=== PATIENT | male | born 1970 | race African-American/Black ===

== ENCOUNTER 2017-08-05 18:36 | Inpatient (IN) | payer BC, OTHER ==
[~2017-08-05] VITALS: Ht 172.7 cm; Wt 117.9 kg
[~2017-08-05 18:36] MED LIST: 1-ME1LIQ PO; ATEN-102 PO; LASI20TA PO; LOVA1TAB47 PO
[2017-08-05] MEDS ORDERED: HYDROmorphone HCL PF 1 MG/ML VIAL IV PUSH ONE (18:45)
[2017-08-05] MEDS ORDERED: SODIUM CHLORIDE 0.9% FLUSH 10 ML FLUSH IV FLUSH PRN ×2 (18:45→20:15)
[2017-08-05] MEDS ORDERED: TETANUS/DIPHTHERIA TOXOID ADULT 0.5 ML VIAL IM ONE (18:45)
[2017-08-05] MEDS ORDERED: ONDANSETRON HCL 4 MG/2 ML VIAL IVP ONE (18:45)
[2017-08-05 18:47] VITALS: BP 120/70; PULSE 67; RESP 18; TEMP 98.4; O2SAT 99
[2017-08-05 18:54] VITALS: O2SAT 99
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
[2017-08-05] MEDS ORDERED: HYDROmorphone HCL PF 2 MG/ML VIAL IV PUSH ONE (19:00)
[2017-08-05] MEDS ORDERED: LOVA10TA PO (19:02)
[2017-08-05] MEDS ORDERED: BETA BLOCKER (19:02)
[2017-08-05] MEDS ORDERED: HYDR12.57 PO (19:02)
[2017-08-05] MEDS ORDERED: AMLO2.5T PO (19:02)
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
[2017-08-05] MEDS ORDERED: ACETAMINOPHEN/HYDROcodone 325 MG/5 MG TAB PO PRN (20:15)
[2017-08-05] MEDS ORDERED: MAGNESIUM HYDROXIDE SUSP 30 ML CUP PO PRN (20:15)
[2017-08-05] MEDS ORDERED: SENNOSIDES 8.6 MG TAB PO PRN (20:15)
[2017-08-05] MEDS ORDERED: ACETAMINOPHEN 325 MG TAB PO PRN (20:15)
[2017-08-05] MEDS ORDERED: LACTULOSE SYRUP 20 GM/30 ML CUP PO PRN (20:15)
[2017-08-05] MEDS ORDERED: BISACODYL 10 MG SUPP RECTAL PRN (20:15)
[2017-08-05] MEDS ORDERED: ONDANSETRON HCL 4 MG/2 ML VIAL IVP PRN (20:15)
[2017-08-05] MEDS ORDERED: PILL SPLITTER OTHER PRN (20:15)
[2017-08-05] MEDS: DOCUSATE SODIUM 50 MG/SENNA 8.6 MG TAB PO SCH (21:00)
[2017-08-05] MEDS: SODIUM CHLORIDE 0.9% FLUSH 10 ML FLUSH IV FLUSH SCH (21:00)
[2017-08-05] MEDS: SODIUM CHLOR 0.9% 1000 ML INJ 1,000 ML IV SCH (21:00)
[2017-08-05 21:09] LABS: AUTOMATED NEUTROPHIL # 2.7 TH/MM3 (1.8-7.7); BASOPHIL % 0.8 % (0.0-2.0); EOSINOPHIL # 0.1 TH/MM3 (0-0.4); EOSINOPHIL % 1.7 % (0.0-4.0); HEMATOCRIT 39.2 % (39.0-51.0); HEMOGLOBIN 13.2 GM/DL (13.0-17.0); LYMPH % 46.3 % (9.0-44.0); MEAN CELL VOLUME 84.1 FL (80.0-100.0); MEAN CORPUSCULAR HEMOGLOBIN 28.3 PG (27.0-34.0); MEAN CORPUSCULAR HGB CONC 33.7 % (32.0-36.0); MEAN PLATELET VOLUME 8.1 FL (7.0-11.0); MONO % 9.2 % (0.0-8.0); MONOCYTE # 0.6 TH/MM3 (0-0.9); PLATELET COUNT 286 TH/MM3 (150-450); RED BLOOD COUNT 4.66 MIL/MM3 (4.50-5.90); RED CELL DISTRIBUTION WIDTH 14.3 % (11.6-17.2); WHITE BLOOD COUNT 6.5 TH/MM3 (4.0-11.0)
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
[2017-08-05 21:18] LABS: PROTHROMBIN TIME - PATIENT 10.2 SEC (9.8-11.6)
[2017-08-05 21:22] LABS: BICARBONATE 26.6 MEQ/L (21.0-32.0); CALCIUM 8.3 MG/DL (8.5-10.1); CREATININE 1.21 MG/DL (0.60-1.30)
[2017-08-05] MEDS: MORPHINE SULFATE 2 MG/ML SYRINGE IV PUSH PRN (22:27)
[2017-08-05 23:15] VITALS: BP 132/81; PULSE 85; RESP 18; TEMP 98.8; O2SAT 96
[2017-08-06] MEDS ORDERED: LACTATED RINGER'S 1000 ML IV PRN (00:15)
[2017-08-06] MEDS ORDERED: POVIDONE IODINE 5% (ANTISEPSIS KIT) 4 APPLICATIONS EACH NARE PRN (00:15)
[2017-08-06] MEDS ORDERED: METOPROLOL TARTRATE 25 MG TAB PO PRN (00:15)
[2017-08-06] MEDS ORDERED: CHLORHEXIDINE GLUCONATE 2 % 1 PACK (2 CLOTHS) TOPICAL PRN (00:15)
[2017-08-06] MEDS ORDERED: BETA BLOCKER (00:20)
[2017-08-06] MEDS ORDERED: HYDR25TA5 PO (00:22)
[2017-08-06] MEDS ORDERED: AMLO10TA2 PO (00:23)
[2017-08-06] MEDS ORDERED: FLUT1SPR5 EACH NARE (00:25)
[2017-08-06] MEDS ORDERED: LOVA20TA PO (00:25)
[2017-08-06] MEDS ORDERED: MULTTAB67 PO (00:25)
[2017-08-06] MEDS ORDERED: MONT10TA2 PO (00:25)
[2017-08-06 03:15] VITALS: BP 136/73; PULSE 83; RESP 17; TEMP 97.7; O2SAT 96
[2017-08-06] MEDS: MORPHINE SULFATE 2 MG/ML SYRINGE IV PUSH PRN ×2 (03:39→12:01)
[2017-08-06] MEDS: SODIUM CHLOR 0.9% 1000 ML INJ 1,000 ML IV SCH ×2 (05:12→17:00)
[2017-08-06 06:22] LABS: ALBUMIN 3.4 GM/DL (3.4-5.0); AST (GOT) 23 U/L (15-37); BICARBONATE 26.5 MEQ/L (21.0-32.0); BLOOD UREA NITROGEN 19 MG/DL (7-18); CALCIUM 8.3 MG/DL (8.5-10.1); CHLORIDE 102 MEQ/L (98-107); CREATININE 1.17 MG/DL (0.60-1.30); GLOMERULAR FILTRATION RATE 81 ML/MIN (>89); GLUCOSE,RANDOM 109 MG/DL (74-106); SODIUM (NA) 137 MEQ/L (136-145)
[2017-08-06 06:23] LABS: ALT (GPT) 44 U/L (12-78)
[2017-08-06 06:25] LABS: ALKALINE PHOSPHATASE 47 U/L (45-117); TOTAL BILIRUBIN ADULT 0.5 MG/DL (0.2-1.0); TOTAL PROTEIN 6.5 GM/DL (6.4-8.2)
[2017-08-06] MEDS ORDERED: ceFAZolin 2 GM PREMIX 50 ML ONE (07:05)
[2017-08-06] MEDS ORDERED: VANCOMYCIN HCL 1000 MG VIAL ONE (07:05)
[2017-08-06] MEDS ORDERED: GENTAMICIN SULFATE 80 MG/2 ML VIAL ONE (07:06)
[2017-08-06 07:17] LABS: AUTOMATED NEUTROPHIL # 6.3 TH/MM3 (1.8-7.7); BASOPHIL % 0.1 % (0.0-2.0); EOSINOPHIL % 0.2 % (0.0-4.0); HEMATOCRIT 36.5 % (39.0-51.0); HEMOGLOBIN 12.4 GM/DL (13.0-17.0); LYMPH % 16.4 % (9.0-44.0); LYMPHOCYTE # 1.4 TH/MM3 (1.0-4.8); MEAN CELL VOLUME 83.4 FL (80.0-100.0); MEAN CORPUSCULAR HEMOGLOBIN 28.3 PG (27.0-34.0); MEAN PLATELET VOLUME 7.9 FL (7.0-11.0); MONO % 8.5 % (0.0-8.0); MONOCYTE # 0.7 TH/MM3 (0-0.9); NEUT % 74.8 % (16.0-70.0); PLATELET COUNT 245 TH/MM3 (150-450); RED BLOOD COUNT 4.38 MIL/MM3 (4.50-5.90); RED CELL DISTRIBUTION WIDTH 13.9 % (11.6-17.2); WHITE BLOOD COUNT 8.4 TH/MM3 (4.0-11.0)
[2017-08-06] MEDS ORDERED: BACITRACIN TOP OINT 15 GM TUBE ONE (07:32)
[2017-08-06] MEDS ORDERED: Post-op Orders (for Pharmacy) XX ONE (08:00)
--- NOTE | 2017-08-06 08:04 | PD.OP ---
cc: Negro Greenberg MD Operative Report Date of Surgery: Aug 06, 2017 Preoperative Diagnosis: Comminuted displaced right bicondylar tibial plateau fracture Postoperative Diagnosis: Procedure: Closed reduction with manipulation right tibial plateau, external fixation right leg Anesthesia: Gen. Surgeon: Negro Greenberg Stationary Engineer(s): ANALI Campbell PA-C The surgical procedure was assisted by my physician assistant branch operations manager. My P.A. presence was necessary throughout this case for the manipulation and positioning of the surgical extremity. My P.A. was assisting me throughout the duration of this procedure. The skill set of a physician assistant branch operations manager was medically necessary to complete this procedure. During the surgical case the logistics tech was working at the back table and the physician assistant branch operations manager was directly assisting me. Operation and Findings: This patient sustained an injury resulting in comminuted fractures of right tibial plateau. Patient was seen and evaluated preoperatively and found to have too much swelling to proceed with open reduction internal fixation. Risk and benefits of surgery were discussed in depth with patient and informed consent was confirmed. Surgical site was marked. Patient was brought to operating room and placed on the OR table. Patient was given IV sedation and GETA. Patient received IV antibiotics and timeout procedure was performed. Operative leg was prepped with alcohol followed by Hibiclens and draped in the usual sterile fashion. Two small incisions were made along the anterior femur and the tibia. Soft tissue was dissected bluntly. Cannulas were placed down to the cortex of bone. Pin sites were predrilled. Synthes LOPEZ-coated pins were placed into the femur and tibia. Fluoroscopy was used to confirm appropriate pin placement. An external fixator construct was now created with clamps and bars. Next attention was turned to reduction. Traction was applied. Fracture was manipulated. Good alignment of the fracture was obtained. There is severe comminution of the articular surface. Fluoroscopy was used to confirm appropriate alignment of fracture. The external fixator was now tightened to hold reduction. Sterile dressings were applied. Patient was awakened and transferred to recovery room in stable condition. The soft tissue was reevaluated. Patient did have swelling around the knee and calf but compartments were soft and compressible with no signs of compartment syndrome. Negro Greenberg MD Aug 06, 2017 08:04
[2017-08-06] MEDS ORDERED: *MEPERIDINE 25 MG INJ VIAL PERIprocedural Use ONLY ONE (08:18)
[2017-08-06] MEDS ORDERED: DO NOT ADM ANY ANTICOAGULANT DRUGS PRN (08:19)
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
[2017-08-06] MEDS ORDERED: *morphine SULFATE 4 MG/ML PERIprocedure ONLY ONE (08:50)
[2017-08-06] MEDS ORDERED: diphenhydrAMINE HCL 25 MG CAP PO PRN (09:00)
[2017-08-06] MEDS: KETOROLAC TROMETHAMINE 30 MG/ML (IVP) VIAL IVP SCH ×3 (09:00→20:46)
[2017-08-06] MEDS: SODIUM CHLORIDE 0.9% FLUSH 10 ML FLUSH IV FLUSH SCH ×2 (09:00→20:46)
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
[2017-08-06 11:57] VITALS: BP 154/91; PULSE 86; RESP 18; TEMP 99.6; O2SAT 100
[2017-08-06] MEDS ORDERED: LIDOCAINE HCL 1% PF 5 ML SYRINGE OTHER ONE (12:00)
[2017-08-06] MEDS ORDERED: PROPOFOL 200 MG/20 ML AMP IV ONE (12:00)
[2017-08-06] MEDS: PRAVASTATIN SOD 10 MG TAB PO SCH (12:02)
[2017-08-06] MEDS: DOCUSATE SODIUM 50 MG/SENNA 8.6 MG TAB PO SCH ×2 (12:02→20:46)
[2017-08-06] MEDS: amLODIPine BESYLATE 5 MG TAB PO SCH (12:06)
[2017-08-06] MEDS: ACETAMINOPHEN/HYDROcodone 325 MG/10 MG TAB PO PRN ×3 (15:29→23:52)
[2017-08-06 16:00] VITALS: BP 144/85; PULSE 91; RESP 18; TEMP 99.1; O2SAT 100
[2017-08-06 17:04] VITALS: O2SAT 100
[2017-08-06] MEDS: MORPHINE SULFATE 4 MG/ML INJ IV PUSH PRN (18:06)
--- NOTE | 2017-08-06 19:00 | RADRPT ---
EXAM DATE/TIME: 08/06/2017 07:56 [place] COMPARISON: No previous studies available for comparison. INDICATIONS : Closed reduction external fixation right tibia. MEDICAL HISTORY : None. SURGICAL HISTORY : None. ENCOUNTER: Initial ACUITY: 1 day PAIN SCORE: Non-responsive. LOCATION: Right Tibia FINDINGS: Two view examination of the right tibia demonstrates comminuted fracture of the proximal tibia with d isplacement. Fibular head fracture. CONCLUSION: 1. Comminuted proximal tibial fracture extending into the tibial plateau. Lateral displacement of the lateral fragment. Proximal fibular fracture as well. Irvin Jalloh MD on August 06, 2017 at 18:56 Board Certified Radiologist. This report was verified electronically.
[2017-08-06 20:00] VITALS: BP 148/84; PULSE 89; RESP 17; TEMP 98.9; O2SAT 98
[2017-08-06] MEDS: LACTATED RINGER'S 1000 ML INJ 1,000 ML IV SCH (20:30)
[2017-08-06 23:24] VITALS: BP 152/80; PULSE 88; RESP 15; TEMP 99.4; O2SAT 98
[2017-08-07] MEDS: ACETAMINOPHEN/HYDROcodone 325 MG/10 MG TAB PO PRN ×6 (02:59→22:35)
[2017-08-07] MEDS: KETOROLAC TROMETHAMINE 30 MG/ML (IVP) VIAL IVP SCH ×4 (03:00→20:25)
[2017-08-07 03:03] VITALS: BP 149/82; PULSE 80; RESP 15; TEMP 99.1; O2SAT 99
[2017-08-07 04:18] LABS: AUTOMATED NEUTROPHIL # 4.2 TH/MM3 (1.8-7.7); BASOPHIL % 0.4 % (0.0-2.0); EOSINOPHIL # 0.1 TH/MM3 (0-0.4); EOSINOPHIL % 1.4 % (0.0-4.0); HEMATOCRIT 32.6 % (39.0-51.0); LYMPH % 27.1 % (9.0-44.0); MEAN CELL VOLUME 82.3 FL (80.0-100.0); MEAN CORPUSCULAR HEMOGLOBIN 27.7 PG (27.0-34.0); MEAN CORPUSCULAR HGB CONC 33.7 % (32.0-36.0); MEAN PLATELET VOLUME 7.7 FL (7.0-11.0); MONO % 12.2 % (0.0-8.0); MONOCYTE # 0.9 TH/MM3 (0-0.9); NEUT % 58.9 % (16.0-70.0); PLATELET COUNT 197 TH/MM3 (150-450); RED BLOOD COUNT 3.97 MIL/MM3 (4.50-5.90); RED CELL DISTRIBUTION WIDTH 14.1 % (11.6-17.2); WHITE BLOOD COUNT 7.2 TH/MM3 (4.0-11.0)
[2017-08-07 04:40] LABS: ALT (GPT) 36 U/L (12-78); AST (GOT) 23 U/L (15-37); BICARBONATE 29.7 MEQ/L (21.0-32.0); BLOOD UREA NITROGEN 12 MG/DL (7-18); CALCIUM 8.1 MG/DL (8.5-10.1); CHLORIDE 104 MEQ/L (98-107); CREATININE 0.91 MG/DL (0.60-1.30); GLOMERULAR FILTRATION RATE 108 ML/MIN (>89); GLUCOSE,RANDOM 102 MG/DL (74-106); PHOSPHORUS 3.2 MG/DL (2.5-4.9); SODIUM (NA) 140 MEQ/L (136-145)
[2017-08-07 04:49] LABS: ALKALINE PHOSPHATASE 41 U/L (45-117); FREE T4 1.42 NG/DL (0.76-1.46); TOTAL BILIRUBIN ADULT 1.1 MG/DL (0.2-1.0); TOTAL PROTEIN 6.3 GM/DL (6.4-8.2)
--- NOTE | 2017-08-07 06:41 | PD.ORT.PN ---
Subjective Subjective Remarks Resting comfortably. Does complain of left wrist pain Objective Vitals Vital Signs Date Time Temp Pulse Resp B/P (MAP) Pulse Ox O2 Delivery O2 Flow Rate FiO2 08/07/17 03:03 99.1 80 15 149/82 (104) 99 08/06/17 23:24 99.4 88 15 152/80 (104) 98 08/06/17 20:00 98.9 89 17 148/84 (105) 98 08/06/17 17:04 100 Nasal Cannula 2.00 08/06/17 16:00 99.1 91 18 144/85 (104) 100 08/06/17 11:57 99.6 86 18 154/91 (112) 100 08/06/17 09:15 98.9 77 17 142/86 (104) 100 Nasal Cannula 3 08/06/17 09:00 75 17 134/81 (98) 100 Nasal Cannula 3 08/06/17 08:45 76 16 122/66 (84) 100 Nasal Cannula 3 08/06/17 08:30 88 15 120/69 (86) 100 Nasal Cannula 3 08/06/17 08:15 99.5 89 15 145/90 (108) 100 Nasal Cannula 3 I/O 08/06/17 08/06/17 08/06/17 08/07/17 08/07/17 08/07/17 07:00 15:00 23:00 07:00 15:00 23:00 Intake Total 240 ml 1000 ml 750 ml Output Total 500 ml 570 ml 1100 ml Balance -260 ml 430 ml -350 ml Intake Oral 240 ml 750 ml Other 1000 ml Output Urine Total 500 ml 550 ml 1100 ml Other 20 ml # Voids 2 # Bowel Movements 0 Result Diagram: 08/07/17 0337 08/07/17 033 Objective Remarks Bilateral upper extremities: Full range of motion neurovascular intact. Does complain of left wrist pain Left lower extremity: Full range of motion neurovascular intact Right lower extremity: No pain with hip range of motion. External fixation in place. Swelling of +3 over tibia plateau. Intact sensation with good capillary refills and distal pulses. Assessment & Plan Assessment and Plan Right bicondylar tibial plateau fracture external fixation POD 1 Nonweightbearing right lower extremity Pin care twice a day Elevation and ice We'll plan on surgery later this week when swelling is improved for final fixation of tibia plateau with a plate and screws Zeferino Complaining of left wrist pain, we'll order x-rays today Yared Herrera Jr. Aug 07, 2017 06:41
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
[2017-08-07] MEDS ORDERED: WHEEMIS3 (07:54)
[2017-08-07] MEDS ORDERED: WALKER WHEELS/F1 MIS (07:54)
[2017-08-07 07:55] VITALS: BP 135/86; PULSE 90; RESP 18; TEMP 98.7; O2SAT 99
[2017-08-07] MEDS: SODIUM CHLORIDE 0.9% FLUSH 10 ML FLUSH IV FLUSH SCH ×2 (08:45→20:25)
[2017-08-07] MEDS: amLODIPine BESYLATE 5 MG TAB PO SCH (08:45)
[2017-08-07] MEDS: DOCUSATE SODIUM 50 MG/SENNA 8.6 MG TAB PO SCH ×2 (08:45→20:25)
[2017-08-07] MEDS: PRAVASTATIN SOD 10 MG TAB PO SCH (08:45)
[2017-08-07] MEDS: ENOXAPARIN SODIUM 40 MG/0.4 ML SYRINGE SQ SCH (08:45)
[2017-08-07] MEDS: LACTATED RINGER'S 1000 ML INJ 1,000 ML IV SCH ×2 (09:00→21:30)
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
[2017-08-07 11:54] VITALS: BP 145/50; PULSE 94; RESP 18; TEMP 99.4; O2SAT 97
[2017-08-07] MEDS: SODIUM CHLOR 0.9% 1000 ML INJ 1,000 ML IV SCH ×2 (13:00→23:00)
[2017-08-07 13:30] VITALS: O2SAT 97
[2017-08-07 16:00] VITALS: BP 143/85; PULSE 96; RESP 18; TEMP 99.3; O2SAT 99
[2017-08-07 20:09] VITALS: BP 146/85; PULSE 99; RESP 18; TEMP 99.6; O2SAT 100
[2017-08-07] MEDS: MORPHINE SULFATE 4 MG/ML INJ IV PUSH PRN (20:25)
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
[2017-08-08 00:15] VITALS: BP 131/64; PULSE 92; RESP 18; TEMP 97.7; O2SAT 98
[2017-08-08] MEDS: ACETAMINOPHEN/HYDROcodone 325 MG/10 MG TAB PO PRN ×7 (01:56→22:14)
[2017-08-08] MEDS: KETOROLAC TROMETHAMINE 30 MG/ML (IVP) VIAL IVP SCH (03:17)
--- NOTE | 2017-08-08 07:16 | PD.ORT.PN ---
Subjective Subjective Remarks s/p exfix right tibial plateau fx s/p left scaphoid fx doing well. pain controlled. no complaints. Objective Vitals Vital Signs Date Time Temp Pulse Resp B/P (MAP) Pulse Ox O2 Delivery O2 Flow Rate FiO2 08/08/17 00:15 97.7 92 18 131/64 (86) 98 08/07/17 20:09 99.6 99 18 146/85 (105) 100 08/07/17 16:12 08/07/17 16:00 99.3 96 18 143/85 (104) 99 08/07/17 13:30 97 21 08/07/17 13:29 08/07/17 11:54 99.4 94 18 145/50 (81) 97 08/07/17 11:27 08/07/17 07:55 98.7 90 18 135/86 (102) 99 I/O 08/07/17 08/07/17 08/07/17 08/08/17 08/08/17 08/08/17 07:00 15:00 23:00 07:00 15:00 23:00 Intake Total 750 ml 480 ml 0 ml 360 ml Output Total 1100 ml 400 ml Balance -350 ml 480 ml 0 ml -40 ml Intake Oral 750 ml 480 ml 360 ml IV Total 0 ml Output Urine Total 1100 ml 400 ml # Voids 4 # Bowel Movements 0 0 Result Diagram: 08/07/1733608/07/17336 Objective Remarks RLE: Ex-fix in place. Pin sites clean and dry. 2+ swelling of the lower leg with compartments that are soft. Full sensation distally with good dorsiflexion of ankle LUE: Short arm splint is present in good repair. Full motion of fingers with full sensation in median and ulnar nerve distribution Assessment & Plan Assessment and Plan 1) Right bicondylar tibial plateau fracture external fixation POD 2 2) Scaphoid fx left wrist Nonweightbearing right lower extremity Pin care twice a day Elevation and ice We'll plan on surgery later this week when swelling is improved for final fixation of tibia plateau with a plate and screws Lovenox Ct scan of wrist shows scaphoid fx. will treat nonop convert to short arm thumb spica splint. Gene Elizabeth/Gravel Hauler PA Aug 08, 2017 07:16
[2017-08-08 07:49] VITALS: BP 143/85; PULSE 98; RESP 18; TEMP 98.6; O2SAT 99
[2017-08-08] MEDS: SODIUM CHLORIDE 0.9% FLUSH 10 ML FLUSH IV FLUSH SCH ×2 (09:00→21:40)
[2017-08-08] MEDS: SODIUM CHLOR 0.9% 1000 ML INJ 1,000 ML IV SCH ×3 (09:00→21:55)
[2017-08-08] MEDS: amLODIPine BESYLATE 5 MG TAB PO SCH (09:10)
[2017-08-08] MEDS: DOCUSATE SODIUM 50 MG/SENNA 8.6 MG TAB PO SCH ×2 (09:10→21:42)
[2017-08-08] MEDS: PRAVASTATIN SOD 10 MG TAB PO SCH (09:10)
[2017-08-08] MEDS: KETOROLAC TROMETHAMINE 30 MG/ML (IVP) VIAL IV PUSH SCH ×3 (09:11→21:41)
[2017-08-08] MEDS: ENOXAPARIN SODIUM 40 MG/0.4 ML SYRINGE SQ SCH (09:12)
[2017-08-08] MEDS: LACTATED RINGER'S 1000 ML INJ 1,000 ML IV SCH ×2 (10:00→21:55)
[2017-08-08 11:48] VITALS: BP 142/79; PULSE 113; RESP 18; TEMP 98.8; O2SAT 98
[2017-08-08] MEDS: MORPHINE SULFATE 4 MG/ML INJ IV PUSH PRN (14:23)
[2017-08-08 15:57] VITALS: BP 133/74; PULSE 105; RESP 18; TEMP 99.9; O2SAT 98
[2017-08-08 20:00] VITALS: BP 148/80; PULSE 108; RESP 17; TEMP 100.2; O2SAT 99
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
[2017-08-08] MEDS ORDERED: LACTULOSE SYRUP 20 GM/30 ML CUP PO ONE (20:30)
[2017-08-08 20:46] LABS: HEMOGLOBIN A1C 5.5 % (4.3-6.0)
[2017-08-08 23:00] VITALS: BP 138/71; PULSE 107; RESP 18; TEMP 98.4; O2SAT 98
[2017-08-09] MEDS: ACETAMINOPHEN/HYDROcodone 325 MG/10 MG TAB PO PRN ×8 (01:24→23:26)
[2017-08-09] MEDS: KETOROLAC TROMETHAMINE 30 MG/ML (IVP) VIAL IV PUSH SCH ×3 (04:24→15:07)
[2017-08-09] MEDS: BACITRACIN TOP OINT 15 GM TUBE TOPICAL PRN (04:26)
--- NOTE | 2017-08-09 06:34 | PD.ORT.PN ---
Subjective Subjective Remarks Resting comfortably. Does complain of left wrist pain Objective Vitals Vital Signs Date Time Temp Pulse Resp B/P (MAP) Pulse Ox O2 Delivery O2 Flow Rate FiO2 08/08/17 23:00 98.4 107 18 138/71 (93) 98 08/08/17 20:00 100.2 108 17 148/80 (102) 99 08/08/17 15:57 99.9 105 18 133/74 (93) 98 08/08/17 11:48 98.8 113 18 142/79 (100) 98 08/08/17 07:49 98.6 98 18 143/85 (104) 99 I/O 08/08/17 08/08/17 08/08/17 08/09/17 08/09/17 08/09/17 07:00 15:00 23:00 07:00 15:00 23:00 Intake Total 360 ml 480 ml Output Total 400 ml Balance -40 ml 480 ml Intake Oral 360 ml 480 ml Output Urine Total 400 ml # Voids 4 # Bowel Movements 0 0 Result Diagram: 08/07/17 0337 08/07/17 033 Objective Remarks RLE: Ex-fix in place. Pin sites clean and dry. 2+ swelling of the lower leg with compartments that are soft. Full sensation distally with good dorsiflexion of ankle LUE: Short arm thumb spica splint is present in good repair. Full motion of fingers with full sensation in median and ulnar nerve distribution Assessment & Plan Assessment and Plan 1) Right bicondylar tibial plateau fracture external fixation POD 3 2) Scaphoid fx left wrist Nonweightbearing right lower extremity Pin care twice a day Elevation and ice Swelling is too great and we will plan on surgery next week either Sunday or Sunday [employer] May use platform Yared Loco Jr. Aug 09, 2017 06:34
[2017-08-09] MEDS: PRAVASTATIN SOD 10 MG TAB PO SCH (07:56)
[2017-08-09] MEDS: DOCUSATE SODIUM 50 MG/SENNA 8.6 MG TAB PO SCH ×2 (07:56→20:49)
[2017-08-09] MEDS: amLODIPine BESYLATE 5 MG TAB PO SCH (07:56)
[2017-08-09] MEDS: SODIUM CHLORIDE 0.9% FLUSH 10 ML FLUSH IV FLUSH SCH ×2 (07:57→20:49)
[2017-08-09] MEDS: ENOXAPARIN SODIUM 40 MG/0.4 ML SYRINGE SQ SCH (07:57)
[2017-08-09 08:20] VITALS: O2SAT 98
[2017-08-09] MEDS: LACTATED RINGER'S 1000 ML INJ 1,000 ML IV SCH ×2 (10:26→21:07)
[2017-08-09 11:55] VITALS: BP 132/74; PULSE 112; RESP 18; TEMP 99.5; O2SAT 99
[2017-08-09] MEDS: SODIUM CHLOR 0.9% 1000 ML INJ 1,000 ML IV SCH ×2 (15:00→21:07)
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
[2017-08-09] MEDS: MORPHINE SULFATE 4 MG/ML INJ IV PUSH PRN (15:08)
[2017-08-09 15:31] VITALS: BP 163/101; PULSE 118; RESP 18; TEMP 100.8; O2SAT 100
[2017-08-09 18:35] VITALS: BP 135/74; PULSE 111; RESP 19; TEMP 100; O2SAT 98
[2017-08-09 23:45] VITALS: BP 142/84; PULSE 111; RESP 17; TEMP 99.7; O2SAT 97
[2017-08-10] MEDS: ACETAMINOPHEN/HYDROcodone 325 MG/10 MG TAB PO PRN ×7 (02:48→21:28)
[2017-08-10] MEDS: BACITRACIN TOP OINT 15 GM TUBE TOPICAL PRN (04:48)
[2017-08-10 08:00] VITALS: BP_SYST 154; BP_SYST 163; BP_DIAS 72; BP_DIAS 94; PULSE 109; PULSE 90; RESP 16; TEMP 98; TEMP 99.4; O2SAT 93; O2SAT 98
[2017-08-10] MEDS: PRAVASTATIN SOD 10 MG TAB PO SCH (08:00)
[2017-08-10] MEDS: amLODIPine BESYLATE 5 MG TAB PO SCH (08:00)
[2017-08-10] MEDS: DOCUSATE SODIUM 50 MG/SENNA 8.6 MG TAB PO SCH ×2 (08:00→21:28)
[2017-08-10] MEDS: SODIUM CHLORIDE 0.9% FLUSH 10 ML FLUSH IV FLUSH SCH ×2 (08:01→21:00)
[2017-08-10] MEDS: ENOXAPARIN SODIUM 40 MG/0.4 ML SYRINGE SQ SCH (08:01)
--- NOTE | 2017-08-10 08:54 | PD.ORT.PN ---
Subjective Subjective Remarks Resting comfortably. Objective Vitals Vital Signs Date Time Temp Pulse Resp B/P (MAP) Pulse Ox O2 Delivery O2 Flow Rate FiO2 08/09/17 23:45 99.7 111 17 142/84 (103) 97 08/09/17 20:40 21 08/09/17 18:35 100.0 111 19 135/74 (94) 98 08/09/17 15:31 100.8 118 18 163/101 (121) 100 08/09/17 11:55 99.5 112 18 132/74 (93) 99 I/O 08/09/17 08/09/17 08/09/17 08/10/17 08/10/17 08/10/17 07:00 15:00 23:00 07:00 15:00 23:00 Intake Total 950 ml 960 ml Output Total 700 ml 850 ml Balance 250 ml 110 ml Intake Oral 900 ml 960 ml IV Total 50 ml Output Urine Total 700 ml 850 ml # Voids 1 # Bowel Movements 0 Result Diagram: 08/07/17 0337 08/07/17 0337 Objective Remarks RLE: Ex-fix in place. Pin sites clean and dry. 2+ swelling of the lower leg with compartments that are soft. Full sensation distally with good dorsiflexion of ankle LUE: Short arm thumb spica splint is present in good repair. Full motion of fingers with full sensation in median and ulnar nerve distribution Assessment & Plan Assessment and Plan 1) Right bicondylar tibial plateau fracture external fixation POD 4 2) Scaphoid fx left wrist Nonweightbearing right lower extremity Pin care twice a day Elevation and ice Swelling is too great and we will plan on surgery next week either Sunday or Sunday hold Lovenox after Sunday's dose May use platform Yared Loco Jr. Aug 10, 2017 08:54
[2017-08-10] MEDS: SODIUM CHLOR 0.9% 1000 ML INJ 1,000 ML IV SCH ×2 (10:00→21:00)
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
[2017-08-10] MEDS: LACTATED RINGER'S 1000 ML INJ 1,000 ML IV SCH ×2 (11:37→21:32)
[2017-08-10 13:09] LABS: BILIRUBIN, URINE NEG (NEG); BLOOD, URINE NEG (NEG); GLUCOSE,URINE NEG (NEG); KETONE, URINE NEG (NEG); NITRITE,URINE NEG (NEG); PH, URINE 7.5 (5.0-8.5); URINE COLOR LIGHT-YELLOW (YELLW/STRAW); URINE LEUKOCYTE ESTERASE NEG (NEG)
[2017-08-10 14:52] VITALS: BP 146/89; PULSE 103; RESP 16; TEMP 99.3; O2SAT 98
[2017-08-10 15:00] LABS: AUTOMATED NEUTROPHIL # 5.6 TH/MM3 (1.8-7.7); BASOPHIL % 0.5 % (0.0-2.0); EOSINOPHIL # 0.1 TH/MM3 (0-0.4); EOSINOPHIL % 1.6 % (0.0-4.0); HEMATOCRIT 28.1 % (39.0-51.0); HEMOGLOBIN 9.7 GM/DL (13.0-17.0); LYMPH % 27.3 % (9.0-44.0); LYMPHOCYTE # 2.5 TH/MM3 (1.0-4.8); MEAN CELL VOLUME 83.4 FL (80.0-100.0); MEAN CORPUSCULAR HEMOGLOBIN 28.7 PG (27.0-34.0); MEAN CORPUSCULAR HGB CONC 34.4 % (32.0-36.0); MEAN PLATELET VOLUME 8.1 FL (7.0-11.0); MONO % 10.3 % (0.0-8.0); NEUT % 60.3 % (16.0-70.0); PLATELET COUNT 258 TH/MM3 (150-450); RED BLOOD COUNT 3.37 MIL/MM3 (4.50-5.90); RED CELL DISTRIBUTION WIDTH 13.4 % (11.6-17.2); WHITE BLOOD COUNT 9.3 TH/MM3 (4.0-11.0)
[2017-08-10 15:09] LABS: BICARBONATE 27.2 MEQ/L (21.0-32.0); CALCIUM 8.4 MG/DL (8.5-10.1); CREATININE 0.9 MG/DL (0.60-1.30)
[2017-08-10 16:00] VITALS: BP 147/83; PULSE 111; RESP 16; TEMP 99.9; O2SAT 98
[2017-08-10 20:00] VITALS: BP 118/57; PULSE 110; RESP 17; TEMP 99.5; O2SAT 98
[2017-08-10 23:40] VITALS: BP 151/78; PULSE 109; RESP 17; TEMP 98.3; O2SAT 98
[2017-08-11] MEDS: ACETAMINOPHEN/HYDROcodone 325 MG/10 MG TAB PO PRN ×7 (02:14→21:20)
[2017-08-11] MEDS: SODIUM CHLOR 0.9% 1000 ML INJ 1,000 ML IV SCH ×2 (03:40→09:52)
[2017-08-11 07:16] LABS: AUTOMATED NEUTROPHIL # 5.6 TH/MM3 (1.8-7.7); BASOPHIL % 0.5 % (0.0-2.0); EOSINOPHIL # 0.1 TH/MM3 (0-0.4); EOSINOPHIL % 1.2 % (0.0-4.0); HEMATOCRIT 27.8 % (39.0-51.0); HEMOGLOBIN 9.4 GM/DL (13.0-17.0); LYMPH % 21.6 % (9.0-44.0); LYMPHOCYTE # 1.8 TH/MM3 (1.0-4.8); MEAN CELL VOLUME 83.4 FL (80.0-100.0); MEAN CORPUSCULAR HEMOGLOBIN 28.2 PG (27.0-34.0); MEAN CORPUSCULAR HGB CONC 33.9 % (32.0-36.0); MEAN PLATELET VOLUME 7.6 FL (7.0-11.0); MONO % 10.8 % (0.0-8.0); MONOCYTE # 0.9 TH/MM3 (0-0.9); NEUT % 65.9 % (16.0-70.0); PLATELET COUNT 267 TH/MM3 (150-450); RED BLOOD COUNT 3.33 MIL/MM3 (4.50-5.90); RED CELL DISTRIBUTION WIDTH 13.6 % (11.6-17.2); WHITE BLOOD COUNT 8.5 TH/MM3 (4.0-11.0)
[2017-08-11 07:47] LABS: BICARBONATE 25.9 MEQ/L (21.0-32.0); CALCIUM 8.8 MG/DL (8.5-10.1); CREATININE 0.87 MG/DL (0.60-1.30)
[2017-08-11 08:00] VITALS: BP 141/80; PULSE 108; RESP 18; TEMP 98; O2SAT 98
[2017-08-11] MEDS: ENOXAPARIN SODIUM 40 MG/0.4 ML SYRINGE SQ SCH (08:40)
[2017-08-11] MEDS: amLODIPine BESYLATE 5 MG TAB PO SCH (08:41)
[2017-08-11] MEDS: SODIUM CHLORIDE 0.9% FLUSH 10 ML FLUSH IV FLUSH SCH ×2 (08:41→21:20)
[2017-08-11] MEDS: PRAVASTATIN SOD 10 MG TAB PO SCH (08:41)
[2017-08-11] MEDS: DOCUSATE SODIUM 50 MG/SENNA 8.6 MG TAB PO SCH ×2 (08:41→21:19)
[2017-08-11] MEDS: LACTATED RINGER'S 1000 ML INJ 1,000 ML IV SCH (09:52)
[2017-08-11 11:22] VITALS: BP 141/69; PULSE 109; RESP 18; TEMP 99; O2SAT 98
[2017-08-11] MEDS: MORPHINE SULFATE 4 MG/ML INJ IV PUSH PRN (11:31)
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
[2017-08-11 16:31] VITALS: BP 123/72; PULSE 114; RESP 16; TEMP 99.1; O2SAT 98
[2017-08-11 19:47] VITALS: BP 148/92; PULSE 104; RESP 18; TEMP 98.2; O2SAT 96
[2017-08-11 23:40] VITALS: BP 144/81; PULSE 106; RESP 18; TEMP 98.1; O2SAT 95
[2017-08-12] MEDS: ACETAMINOPHEN/HYDROcodone 325 MG/10 MG TAB PO PRN ×7 (01:17→22:57)
[2017-08-12] MEDS: LACTATED RINGER'S 1000 ML INJ 1,000 ML IV SCH ×2 (01:30→11:48)
[2017-08-12] MEDS: SODIUM CHLOR 0.9% 1000 ML INJ 1,000 ML IV SCH ×3 (03:00→23:00)
[2017-08-12 08:00] VITALS: BP 142/84; PULSE 110; RESP 18; TEMP 100.4; O2SAT 97
[2017-08-12] MEDS: ENOXAPARIN SODIUM 40 MG/0.4 ML SYRINGE SQ SCH (08:38)
[2017-08-12] MEDS: PRAVASTATIN SOD 10 MG TAB PO SCH (08:38)
[2017-08-12] MEDS: DOCUSATE SODIUM 50 MG/SENNA 8.6 MG TAB PO SCH ×2 (08:39→19:54)
[2017-08-12] MEDS: amLODIPine BESYLATE 5 MG TAB PO SCH (08:39)
[2017-08-12] MEDS: SODIUM CHLORIDE 0.9% FLUSH 10 ML FLUSH IV FLUSH SCH ×2 (08:44→21:00)
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
[2017-08-12 11:46] VITALS: BP 162/88; PULSE 115; RESP 18; TEMP 97.9; O2SAT 97
[2017-08-12] MEDS: MORPHINE SULFATE 2 MG/ML SYRINGE IV PUSH PRN (12:44)
[2017-08-12 16:00] VITALS: BP 142/81; PULSE 115; RESP 18; TEMP 99.6; O2SAT 99
[2017-08-12 19:45] VITALS: BP 131/77; PULSE 118; RESP 19; TEMP 99.3; O2SAT 96
[2017-08-12 21:40] VITALS: O2SAT 97
[2017-08-12 23:48] VITALS: BP 141/75; PULSE 100; RESP 18; TEMP 98.9; O2SAT 95
[2017-08-13] VITALS (7 sets, daily range): BP systolic 133–159; BP diastolic 78–98; PULSE 100–106; RESP 18; TEMP 98.5–99.4; O2SAT 94–99
[2017-08-13] MEDS ORDERED: CHLORHEXIDINE GLUCONATE 2 % 1 PACK (2 CLOTHS) TOPICAL PRN (01:15)
[2017-08-13] MEDS ORDERED: LACTATED RINGER'S 1000 ML IV PRN (01:15)
[2017-08-13] MEDS ORDERED: POVIDONE IODINE 5% (ANTISEPSIS KIT) 4 APPLICATIONS EACH NARE PRN (01:15)
[2017-08-13] MEDS ORDERED: SODIUM CHLORID 0.9% 500 ML IV PRN (01:15)
[2017-08-13] MEDS ORDERED: METOPROLOL TARTRATE 25 MG TAB PO PRN (01:15)
[2017-08-13] MEDS: ACETAMINOPHEN/HYDROcodone 325 MG/10 MG TAB PO PRN ×7 (02:00→20:19)
[2017-08-13] MEDS: LACTATED RINGER'S 1000 ML INJ 1,000 ML IV SCH ×2 (02:30→14:47)
--- NOTE | 2017-08-13 06:36 | PD.ORT.PN ---
Subjective Subjective Remarks Resting comfortably. Objective Vitals Vital Signs Date Time Temp Pulse Resp B/P (MAP) Pulse Ox O2 Delivery O2 Flow Rate FiO2 08/13/17 03:52 98.5 103 18 134/79 (97) 98 08/12/17 23:48 98.9 100 18 141/75 (97) 95 08/12/17 21:40 97 21 08/12/17 19:45 99.3 118 19 131/77 (95) 96 08/12/17 16:00 99.6 115 18 142/81 (101) 99 08/12/17 11:46 97.9 115 18 162/88 (112) 97 08/12/17 08:00 100.4 110 18 142/84 (103) 97 I/O 08/12/17 08/12/17 08/12/17 08/13/17 08/13/17 08/13/17 07:00 15:00 23:00 07:00 15:00 23:00 Intake Total 360 ml 960 ml 0 ml Balance 360 ml 960 ml 0 ml Intake Oral 360 ml 960 ml 0 ml # Voids 3 4 3 # Bowel Movements 0 0 0 Result Diagram: 08/11/1761808/11/17618 Objective Remarks RLE: Ex-fix in place. Pin sites clean and dry. 2+ swelling of the lower leg with compartments that are soft. Swelling improving .Full sensation distally with good dorsiflexion of ankle LUE: Short arm thumb spica splint is present in good repair. Full motion of fingers with full sensation in median and ulnar nerve distribution Assessment & Plan Assessment and Plan 1) Right bicondylar tibial plateau fracture external fixation POD 6 2) Scaphoid fx left wrist Nonweightbearing right lower extremity Pin care twice a day Elevation and ice Swelling is too great and we will plan on surgery Sunday One-time dose 30 mg of Lovenox Nothing by mouth after midnight In bed at all times today with elevation. May use platform walker Yared Herrera Jr. Aug 13, 2017 06:35
[2017-08-13] MEDS ORDERED: ENOXAPARIN SODIUM 30 MG/0.3 ML SYRINGE SQ ONE (06:45)
[2017-08-13] MEDS: DOCUSATE SODIUM 50 MG/SENNA 8.6 MG TAB PO SCH ×2 (07:42→20:24)
[2017-08-13] MEDS: PRAVASTATIN SOD 10 MG TAB PO SCH (07:43)
[2017-08-13] MEDS: SODIUM CHLOR 0.9% 1000 ML INJ 1,000 ML IV SCH ×2 (07:43→18:49)
[2017-08-13] MEDS: amLODIPine BESYLATE 5 MG TAB PO SCH (07:43)
[2017-08-13] MEDS: SODIUM CHLORIDE 0.9% FLUSH 10 ML FLUSH IV FLUSH SCH ×2 (07:43→20:24)
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
[2017-08-14] VITALS: BP 132/76; PULSE 98; RESP 18; TEMP 98.7; O2SAT 96
[2017-08-14] MEDS: ACETAMINOPHEN/HYDROcodone 325 MG/10 MG TAB PO PRN ×5 (00:18→21:34)
[2017-08-14] MEDS: LACTATED RINGER'S 1000 ML INJ 1,000 ML IV SCH ×3 (03:30→17:40)
[2017-08-14 04:00] VITALS: BP 130/82; PULSE 118; RESP 18; TEMP 98.1; O2SAT 98
[2017-08-14] MEDS: SODIUM CHLOR 0.9% 1000 ML INJ 1,000 ML IV SCH ×2 (05:00→15:00)
--- NOTE | 2017-08-14 06:27 | PD.ORT.PN ---
Subjective Subjective Remarks s/p exfix right tibial plateau fx s/p left scaphoid fx doing well. pain controlled. no complaints. Objective Vitals Vital Signs Date Time Temp Pulse Resp B/P (MAP) Pulse Ox O2 Delivery O2 Flow Rate FiO2 08/14/17 00:00 98.7 98 18 132/76 (94) 96 08/13/17 22:25 94 08/13/17 20:00 99.4 106 18 135/78 (97) 96 08/13/17 16:00 99.0 100 18 159/98 (118) 97 08/13/17 12:00 98.7 101 18 138/80 (99) 99 08/13/17 09:23 98 08/13/17 08:00 98.9 106 18 133/84 (100) 99 I/O 08/13/17 08/13/17 08/13/17 08/14/17 08/14/17 08/14/17 07:00 15:00 23:00 07:00 15:00 23:00 Intake Total 0 ml 720 ml Balance 0 ml 720 ml Intake Oral 0 ml 720 ml # Voids 3 4 # Bowel Movements 0 1 Result Diagram: 08/11/1761808/11/17618 Objective Remarks RLE: Ex-fix in place. Pin sites clean and dry. 1+ swelling of the lower leg with compartments that are soft. Swelling improving .Full sensation distally with good dorsiflexion of ankle LUE: Short arm thumb spica splint is present in good repair. Full motion of fingers with full sensation in median and ulnar nerve distribution Assessment & Plan Assessment and Plan 1) Right bicondylar tibial plateau fracture external fixation 2) Scaphoid fx left wrist Nonweightbearing right lower extremity Pin care twice a day Elevation and ice plan for surgery today with Dr Jyoti Elizabeth,Gene STEVENSON/First Scooby STEVENSON Aug 14, 2017 06:27
[2017-08-14 08:00] VITALS: BP 124/80; PULSE 104; RESP 18; TEMP 99.4; O2SAT 94
[2017-08-14] MEDS: amLODIPine BESYLATE 5 MG TAB PO SCH (09:00)
[2017-08-14] MEDS: DOCUSATE SODIUM 50 MG/SENNA 8.6 MG TAB PO SCH ×2 (09:00→20:08)
[2017-08-14] MEDS: SODIUM CHLORIDE 0.9% FLUSH 10 ML FLUSH IV FLUSH SCH ×2 (09:00→20:08)
[2017-08-14] MEDS: PRAVASTATIN SOD 10 MG TAB PO SCH (09:00)
[2017-08-14] MEDS ORDERED: ONDANSETRON HCL 4 MG/2 ML VIAL IV ONE (12:00)
[2017-08-14] MEDS ORDERED: DEXAMETHASONE SOD PHOS 4 MG/ML VIAL IV ONE (12:00)
[2017-08-14] MEDS ORDERED: LIDOCAINE HCL 1% PF 5 ML SYRINGE OTHER ONE (12:00)
[2017-08-14] MEDS ORDERED: LACTATED RINGER'S 1000 ML INJ 1,000 ML IV ONE (12:00)
[2017-08-14] MEDS ORDERED: PROPOFOL 200 MG/20 ML AMP IV ONE (12:00)
[2017-08-14] MEDS ORDERED: ACETAMINOPHEN 1000 MG/100 ML 100 ML IV ONE (13:36)
[2017-08-14] MEDS ORDERED: VANCOMYCIN HCL 1000 MG VIAL ONE (14:48)
[2017-08-14] MEDS ORDERED: ceFAZolin INJ 1,000 MG VIAL ONE (14:48)
[2017-08-14] MEDS ORDERED: GENTAMICIN SULFATE 80 MG/2 ML VIAL ONE (14:49)
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
[2017-08-14] MEDS ORDERED: Post-op Orders (for Pharmacy) XX ONE (16:45)
--- NOTE | 2017-08-14 16:48 | PD.OP ---
cc: eNgro Greenberg MD Operative Report Date of Surgery: Aug 14, 2017 Preoperative Diagnosis: Comminuted right bicondylar tibial plateau fracture Postoperative Diagnosis: Procedure: Removal of external fixation, open repair of lateral meniscus tear, open reduction internal fixation right bicondylar tibial plateau fracture Surgeon: Negro Greenberg Needle Process F[employer]s Supervisor(s): Gene Elizabeth PA-C The surgical procedure was assisted by my physician certified nursing assistant instructor. My P.A. presence was necessary throughout this case for the manipulation and positioning of the surgical extremity. My P.A. was assisting me throughout the duration of this procedure. The skill set of a physician certified nursing assistant instructor was medically necessary to complete this procedure. During the surgical case the surgical orderly was working at the back table and the physician certified nursing assistant instructor was directly assisting me. Operation and Findings: Plan of activity: Nonweightbearing right leg Implants used: Synthes This patient was seen and evaluated preoperatively. Patient sustained an injury resulting a bicondylar right tibial plateau fracture. He was initially treated with closed reduction external fixation. Preoperatively he was seen and evaluated. Skin and soft tissue appeared to be ready for definitive surgery. Informed consent was obtained preoperatively after detailed discussion of the risks and benefits of surgery. Risk of surgery including bleeding, infection, nonunion, painful hardware, stiffness, loss of motion, arthritis, need for knee replacement, as well as medical complications including blood clots, stroke, heart attack, and were discussed. I also discussed the possibility of using allograft bone graft . Preoperatively the operative site was marked. Patient was brought to the operating room and placed on the operating room table. Intravenous sedation and general endotracheal anesthesia were administered. IV antibiotics were given and a time out procedure was preformed. Procedure began with removal of the external fixator. Clamps were loosened. Bars and clamps were now removed. The pins were left in place. Next,the operative leg was prepped with alcohol followed by Hibiclens and draped in the usual sterile fashion. Attention was now turned towards the medial tibial plateau. A 6 inch incision was made over the posterior medial aspect of the tibial plateau. Saphenous vein was protected. The PES insertion was elevated to expose the posterior medial tibial plateau. Fracture was visualized. Attention was now turned toward reduction. Traction was applied. Fracture was manipulated. Fracture keyed in excellent alignment. A fracture tenaculum was used to compress fracture. K wires were used for provisional fixation. Fluoroscopy confirmed excellent alignment of fracture. Two 3.5 cortical lag screws were placed from anterior to posterior. Good compression was obtained. A Synthes plate was now placed along the posterior medial tibial plateau. Plate was provisionally held to bone with K wires. Fluoroscopy confirmed plate placement. 3.5 cortical screws were used to compress plate to bone. Additional locking screws were placed proximally. Next a 6-inch curvilinear incision over the anterolateral knee. Subcutaneous tissue was treated with Bovie. Iliotibial band was split in line with fibers. A sub-meniscal arthrotomy was created and the lateral articular surface was visualized. At this point there was noted to be a large bucket-handle tear of the lateral meniscus. The lateral meniscus was carefully reduced. Multiple vertical mattress sutures were placed to repair the meniscus. The bucket- handle tear was along the periphery of the meniscus. A stable repair was obtained. Next attention was turned to the articular surface. There was significant displacement of the lateral articular surface. Articular surface fragments were reduced into excellent alignment. The joint surface was elevated. K- wires were used for provisional fixation. The cortical fragments were now reduced. Fluoroscopy revealed excellent alignment of fracture. A Synthes proximal tibial plate was selected. The plate was provisionally held with K- wires. 3.5 cortical screws were used compress plate to bone distally, and a periarticular clamp was used to compress the medial and lateral tibial plateau fracture fragments together. Multiple locking screws were now placed proximally. Additional screws were placed in the shaft. K-wires were removed. Final fluoroscopy showed excellent alignment of fracture with well- placed hardware. The incision was thoroughly irrigated. Attention was now returned back to the medial plate. Additional locking screws were placed proximally within the plate. All screws were predrilled and premeasured for appropriate length. Incisions were thoroughly irrigated. Attention was now turned to closure. Fascia and iliotibial band were closed with #1 Vicryl,. Subcutaneous tissues closed with 3-0 Vicryl and skin was closed with montez. The external fixator pins were now removed. Sterile dressings were applied. The patient was transferred to recovery in stable condition. Negro Greenberg MD Aug 14, 2017 16:48
[2017-08-14] MEDS ORDERED: DO NOT ADM ANY ANTICOAGULANT DRUGS PRN (17:25)
[2017-08-14] MEDS ORDERED: *morphine SULFATE 8 MG/ML PERIprocedure ONLY ONE ×2 (17:40→17:52)
[2017-08-14 17:45] VITALS: O2SAT 94
--- NOTE | 2017-08-14 19:03 | RADRPT ---
EXAM DATE/TIME: 08/14/2017 16:26 [facility] COMPARISON: KNEE RIGHT LTD (1 OR 2 VWS), August 05, 2017, 19:55. INDICATIONS : ORIF of the right knee. MEDICAL HISTORY : None. SURGICAL HISTORY : None. ENCOUNTER: Subsequent ACUITY: 1 week PAIN SCORE: Non-responsive. LOCATION: Right knee FINDINGS: There is plate-screw fixation of the proximal tibia with improved anatomic alignment. CONCLUSION: 1. Fixation proximal tibia. Irvin Jalloh MD on August 14, 2017 at 19:00 Board Certified Radiologist. This report was verified electronically.
[2017-08-14] MEDS: MORPHINE SULFATE 4 MG/ML INJ IV PUSH PRN (20:01)
[2017-08-14 20:30] VITALS: BP 161/85; PULSE 112; RESP 17; TEMP 98.6; O2SAT 98
[2017-08-14] MEDS: KETOROLAC TROMETHAMINE 30 MG/ML (IVP) VIAL IVP SCH (21:34)
[2017-08-14] MEDS: CEFAZOLIN INJ 2,000 MG in SODIUM CHLORIDE 0.9% INJ 100 ML IV SCH (22:35)
[2017-08-14 23:55] VITALS: BP 143/72; PULSE 118; RESP 18; TEMP 98.3; O2SAT 100
[2017-08-15] VITALS (7 sets, daily range): BP systolic 141–153; BP diastolic 71–88; PULSE 115–120; RESP 18–19; TEMP 98.9–99.8; O2SAT 98–100
[2017-08-15] MEDS: SODIUM CHLOR 0.9% 1000 ML INJ 1,000 ML IV SCH ×3 (00:55→21:00)
[2017-08-15] MEDS: LACTATED RINGER'S 1000 ML INJ 1,000 ML IV SCH ×4 (03:00→17:42)
[2017-08-15] MEDS: VANCOMYCIN INJ 1,000 MG in SODIUM CHLOR 0.9% 250 ML INJ 250 ML IV SCH ×2 (03:00→15:08)
[2017-08-15] MEDS: ACETAMINOPHEN/HYDROcodone 325 MG/10 MG TAB PO PRN ×6 (03:01→21:34)
[2017-08-15] MEDS: KETOROLAC TROMETHAMINE 30 MG/ML (IVP) VIAL IVP SCH ×3 (05:57→21:34)
[2017-08-15] MEDS: MORPHINE SULFATE 4 MG/ML INJ IV PUSH PRN ×3 (05:57→19:29)
[2017-08-15] MEDS ORDERED: WALKER/ADULT/FO1 MIS (06:44)
[2017-08-15] MEDS ORDERED: HYDR-3583 PO (06:44)
[2017-08-15] MEDS ORDERED: XARE10TA PO (06:44)
--- NOTE | 2017-08-15 06:45 | HHI.FF ---
Face to Face Verification Diagnosis: (1) Fracture of right tibial plateau (2) Scaphoid fracture of wrist Physical Therapy Knee: Knee fracture, Protocol: Right, Non weight bearing Canvas Knee Splint: Remove only with PT Right LE Weight Bearing: Non WB, No Strengthening, No Quad Sets Right LE Range of Motion: Passive ROM (0-90deg) Occupational Therapy Left UE Weight Bearing: Non WB Nursing Dressing Changes: Daily dressing change (to right knee only), José Luis wrap, 4x4s, Xeroform I have seen patient Sherman Byrnes on 08/15/17. My clinical findings support the need for the requested home health care services because: Ltd mobility - disease progression I certify that my clinical findings support that this patient is homebound because: Post-op weakness Gene Elizabeth/First Scooby STEVENSON Aug 15, 2017 06:45
--- NOTE | 2017-08-15 06:48 | PD.ORT.PN ---
Subjective Subjective Remarks POD 1 s/p removal of exfix with ORIF of bicondylar tibial plateau fracture s/p left scaphoid fx doing well. pain controlled. resting comfortably. has not been out of bed yet Objective Vitals Vital Signs Date Time Temp Pulse Resp B/P (MAP) Pulse Ox O2 Delivery O2 Flow Rate FiO2 08/15/17 04:25 98.9 115 19 153/71 (98) 100 08/14/17 23:55 98.3 118 18 143/72 (95) 100 08/14/17 20:30 98.6 112 17 161/85 (110) 98 08/14/17 18:15 98.3 101 16 145/88 (107) 100 Nasal Cannula 2 08/14/17 18:15 101 12 154/96 (115) 100 08/14/17 18:00 100 12 155/95 (115) 100 08/14/17 17:45 94 Nasal Cannula 2.00 08/14/17 17:45 101 14 163/90 (114) 100 08/14/17 17:30 103 14 157/84 (108) 99 Nasal Cannula 2 08/14/17 17:23 98.1 105 8 178/98 (124) 100 Nasal Cannula 2 08/14/17 10:43 18 08/14/17 08:00 99.4 104 18 124/80 (95) 94 I/O 08/14/17 08/14/17 08/14/17 08/15/17 08/15/17 08/15/17 07:00 15:00 23:00 07:00 15:00 23:00 Intake Total 1000 ml Output Total 450 ml 50 ml Balance -450 ml 950 ml Other 1000 ml Output Urine Total 450 ml Estimated Blood Loss 50 ml # Voids 3 # Bowel Movements 1 Result Diagram: 08/11/1761808/11/17 06 Objective Remarks RLE: dressings clean and dry. intact. good dorsiflexion of foot. nvi. +CKS. LUE: +thumb spica splint. nvi Assessment & Plan Assessment and Plan 1) Right bicondylar tibial plateau fracture s/p removal of exfix with ORIF - POD 1 2) Scaphoid fx left wrist NWB RLE daily dressing changes POD 2 DVT prophylaxis CKS except for PT PT for PROM 0-90deg no quad sets or leg lifts CM for DC planning ok for platform walker NWB to left wrist. maintain left wrist splint at all times f/u with Jyoti or PA in 2 weeks Gene Elizabeth PA/Paste Mixing Supervisor PA Aug 15, 2017 06:48
[2017-08-15] MEDS: CEFAZOLIN INJ 2,000 MG in SODIUM CHLORIDE 0.9% INJ 100 ML IV SCH ×2 (07:00→15:08)
[2017-08-15 07:24] LABS: HEMATOCRIT 26.7 % (39.0-51.0); HEMOGLOBIN 9.2 GM/DL (13.0-17.0)
[2017-08-15] MEDS: DOCUSATE SODIUM 50 MG/SENNA 8.6 MG TAB PO SCH ×2 (07:47→21:00)
[2017-08-15] MEDS: PRAVASTATIN SOD 10 MG TAB PO SCH (07:48)
[2017-08-15] MEDS: SODIUM CHLORIDE 0.9% FLUSH 10 ML FLUSH IV FLUSH SCH ×2 (07:48→21:00)
[2017-08-15] MEDS: amLODIPine BESYLATE 5 MG TAB PO SCH (07:48)
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
[2017-08-15] MEDS: ENOXAPARIN SODIUM 30 MG/0.3 ML SYRINGE SQ SCH (15:08)
[2017-08-16] VITALS: BP 140/84; PULSE 116; RESP 18; TEMP 99.3; O2SAT 96
[2017-08-16] MEDS: CEFAZOLIN INJ 2,000 MG in SODIUM CHLORIDE 0.9% INJ 100 ML IV SCH ×3 (00:01→14:46)
[2017-08-16] MEDS: ENOXAPARIN SODIUM 30 MG/0.3 ML SYRINGE SQ SCH ×2 (03:56→15:55)
[2017-08-16] MEDS: VANCOMYCIN INJ 1,000 MG in SODIUM CHLOR 0.9% 250 ML INJ 250 ML IV SCH ×2 (03:56→15:56)
[2017-08-16] MEDS: ACETAMINOPHEN/HYDROcodone 325 MG/10 MG TAB PO PRN ×3 (03:56→14:45)
[2017-08-16 03:57] VITALS: BP 151/85; PULSE 123; RESP 20; TEMP 97.1; O2SAT 100
[2017-08-16] MEDS: LACTATED RINGER'S 1000 ML INJ 1,000 ML IV SCH ×2 (05:30→06:12)
[2017-08-16] MEDS: KETOROLAC TROMETHAMINE 30 MG/ML (IVP) VIAL IVP SCH ×2 (06:15→14:44)
--- NOTE | 2017-08-16 06:38 | PD.ORT.PN ---
Subjective Subjective Remarks Resting comfortably. Objective Vitals Vital Signs Date Time Temp Pulse Resp B/P (MAP) Pulse Ox O2 Delivery O2 Flow Rate FiO2 08/16/17 03:57 97.1 123 20 151/85 (107) 100 08/16/17 00:00 99.3 116 18 140/84 (102) 96 08/15/17 20:00 98.9 120 19 145/75 (98) 99 08/15/17 18:29 99 Nasal Cannula 2.00 08/15/17 16:29 99.8 120 19 153/88 (109) 99 08/15/17 16:07 18 08/15/17 14:13 18 08/15/17 13:18 18 08/15/17 13:07 99.2 120 19 143/79 (100) 99 08/15/17 10:00 98 Nasal Cannula 2.00 08/15/17 08:00 99.0 115 18 141/83 (102) 99 I/O 08/15/17 08/15/17 08/15/17 08/16/17 08/16/17 08/16/17 07:00 15:00 23:00 07:00 15:00 23:00 Intake Total 480 ml 960 ml Output Total 1020 ml 1200 ml Balance -540 ml -240 ml Intake Oral 480 ml 960 ml Output Urine Total 1020 ml 1200 ml # Bowel Movements 0 Result Diagram: 08/15/17 0559 Objective Remarks RLE: dressings clean and dry. intact. Dressing taken down and surgical incisions well approximated. Swelling of +2. good dorsiflexion of foot. nvi. + CKS. LUE: +thumb spica splint. nvi Assessment & Plan Assessment and Plan 1) Right bicondylar tibial plateau fracture s/p removal of exfix with ORIF - POD 2 2) Scaphoid fx left wrist NWB RLE daily dressing changes POD 2 DVT prophylaxis CKS except for PT PT for PROM 0-90deg no quad sets or leg lifts CM for DC planning to rehab ok for platform walker NWB to left wrist. maintain left wrist splint at all times ortho cleared for discharge to rehabilitation - CIR f/u with [facility] or [facility] in 2 weeks Yared Herrera Jr. Aug 16, 2017 06:38
[2017-08-16] MEDS: SODIUM CHLOR 0.9% 1000 ML INJ 1,000 ML IV SCH (07:00)
[2017-08-16 08:00] VITALS: BP 135/86; PULSE 120; RESP 18; TEMP 99.7; O2SAT 96
[2017-08-16] MEDS: PRAVASTATIN SOD 10 MG TAB PO SCH (09:05)
[2017-08-16] MEDS: DOCUSATE SODIUM 50 MG/SENNA 8.6 MG TAB PO SCH (09:05)
[2017-08-16] MEDS: amLODIPine BESYLATE 5 MG TAB PO SCH (09:05)
[2017-08-16] MEDS: SODIUM CHLORIDE 0.9% FLUSH 10 ML FLUSH IV FLUSH SCH (09:12)
[2017-08-16 12:00] VITALS: BP 157/93; PULSE 122; RESP 18; TEMP 98; O2SAT 99
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
== END 2017-08-16 17:06 | DRG 489 ==
LOC: NEPE 18:36 → NEDA 20:34 → N06A 21:32
PROVIDERS: ADMIT Hospitalist; ATTEND Hospitalist
PROC: 0QSG35Z Reposition Right Tibia with External Fixation Device, Percutaneous Approach (ICD-10-PCS; principal; 2017-08-06 07:23)
PROC: 0SQC0ZZ Repair Right Knee Joint, Open Approach (ICD-10-PCS; 2017-08-14)
PROC: 0QSG04Z Reposition Right Tibia with Internal Fixation Device, Open Approach (ICD-10-PCS; 2017-08-14)
PROC: 0QSG04Z Reposition Right Tibia with Internal Fixation Device, Open Approach (ICD-10-PCS; 2017-08-14)
PROC: 0QPGX5Z Removal of External Fixation Device from Right Tibia, External Approach (ICD-10-PCS; 2017-08-14)
DX: S82.141A Displaced bicondylar fracture of right tibia, initial encounter for closed fracture (principal); S83.251A Bucket-handle tear of lateral meniscus, current injury, right knee, initial encounter; I10 Essential (primary) hypertension; S62.002A Unspecified fracture of navicular [scaphoid] bone of left wrist, initial encounter for closed fracture; V23.4XXA Motorcycle driver injured in collision with car, pick-up truck or van in traffic accident, initial encounter; Y92.488 Other paved roadways as the place of occurrence of the external cause; Y93.89 Activity, other specified; Y99.9 Unspecified external cause status; S40.811A Abrasion of right upper arm, initial encounter; K59.00 Constipation, unspecified; R50.9 Fever, unspecified
CPT/HCPCS: 70450; 72125; 73100; 73200; 73560; 73590; 73700; 76000; 80048; 80053; 81001; 82652; 83036; 83735; 84100; 84439; 84443; 85014; 85018; 85025; 85610; 85730; 87040; 90471; 90714; 94150; 96374; 96375; C1713; C1769; J0131; J0690; J1100; J1170; J1580; J1650; J1885; J2175; J2270; J2405; J3010; J3370; J7030; J7050; J7120; L1830; L3808